=== PATIENT | male | born 2000 | race African-American/Black ===

== ENCOUNTER 2023-07-10 19:39 | Emergency (ER) | payer MEDICAID, SELFPAY ==
[2023-07-10 19:57] VITALS: BP 124/86; PULSE 64; RESP 16; TEMP 37.1; O2SAT 97; BMI 16.7
--- NOTE | 2023-07-10 19:58 | ED_ITS ---
HPI - General Adult General Chief complaint: Skin/Abscess/Foreign Body Stated complaint: Spider bite left side denominational Related Data Allergies Allergy/AdvReac Type Severity Reaction Status Date / Time No Known Allergies Allergy Unverified 08/09/20 16:41 [No Known Allergies*] Seasonale Allergy Unknown Uncoded 04/30/20 00:00 [facility] Social History Social History Advance Directives: No Advance Directives Information Provided: No Physical Exam ED Vital Signs: BMI result Body Mass Index 16.7 Course Course Course Narrative: RME performed by Annika Ahumada PA-C. Patient is a 23 year old assigned male at presenting to the emergency department with an abscess on his left denominational. Patient placed back in the waiting room pending room availability. Patient eloped from the department before being seen by a primary provider. Discharge Plan Discharge Clinical Impression: Abscess of skin or subcutaneous tissue Patient Disposition: Elopement Interventions: ED Discharge Assessment Last Done: 07/11/23 01:57 Discharge Date/Time: 07/11/23 01:57
[2023-07-10 23:31] VITALS: BP 121/75; PULSE 52; TEMP 37.2; O2SAT 99
--- OUTSIDE RECORDS SUMMARY | 2023-07-11 01:56 | XMS_ITS | Continuity of Care Document ---
Author Name Unknown Organization [facility] Address [address] [place] [address]- Care Team Providers Care Ladle Puller Name Role Phone Not on Staff, PCP Primary Care Physician Unavail able Encounter [facility] Date(s): 02/09/20 - 02/09/[address] [id number]- [facility] Discharge Disposition: A-D/C Home Attending Physician: Rafa Hager MD Admitting Physician: Rafa Hager MD Referring Physician: Not on Staff, Referring MD Allergies, Adverse Reactions, Alerts Substance Reaction Severity Status NKA Active Medications No Known Medications Vital Signs Most recent to oldest [Reference Range]: 1 Height 186 cm (02/09/20 5:37 PM) Weight 61.3 kg (02/09/20 5:37 PM) Oxygen Saturation [94-100 %] 100 % (02/09/20 5:37 PM) Pulse Rate [55-90 bpm] 61 bpm (02/09/20 5:37 PM) Blood Pressure [90-138/55-84 mm Hg] 124/ 53mm Hg (02/09/20 5:37 PM) Respiratory Rate [16-30 br/min] 16 br/mi n (02/09/20 5:37 PM) Temperature [96.8-100.4 DegF] 97.7 DegF (02/09/20 5:37 PM) Mode of Delivery (Oxygen) Room air (02/09/20 5:37 PM) Blood pressure sites Arm, right (02/09/20 5:37 PM) Temperature Route Oral (02/09/20 5:37 PM) Dry Weight 61.3 kg (02/09/20 5:37 PM) Weight Obtained Via Standing scale (02/09/20 5:37 PM) Dry Weight Obtained Via Standing scale (02/09/20 5:37 PM) Social History Social History Type Response Smoking Status Never (less than 100 in lifetime) entered on: 02/09/20 Sex
== END 2023-07-11 01:57 | disposition left against medical advice (07) ==
PROVIDERS: Emergency Provider Emergency Medicine; PCP Pediatrics
DX: L02.01 Cutaneous abscess of face (principal)
CPT/HCPCS: 99282

== ENCOUNTER 2025-11-08 09:15 | Emergency (ER) | payer MEDICAID, SELFPAY ==
[2025-11-08 09:35] VITALS: BP 138/65; PULSE 69; RESP 18; TEMP 36.6; O2SAT 99; BMI 20.3
--- NOTE | 2025-11-08 10:46 | ED_ITS ---
HPI - Skin/Abscess/Foreign Bdy General Chief complaint: Skin/Abscess/Foreign Body Stated complaint: cyst Time Seen by Provider: 11/08/25 10:41 Source: patient Mode of arrival: ambulatory Limitations: no limitations History of Present Illness ED Provider: Chip Calloway PA-C HPI narrative: 25 yo male presents to the ER for evaluation of a painful large cyst on the left side of his face that has been present for the last several days. He reports the same thing happened 2 years ago and he had to get it drained. He reports he was seen at an urgent care couple of days ago, they prescribed him an antibiotic and he has had no improvement. He reports the swelling is starting to go near his left eye. He denies any pain with extraocular movements. No fever or chills. No drainage from the cyst. No other cysts on his body. Denies history of cystic acne complaint: abscess/boil Onset (ago): day(s) Tetanus up to date: yes Location: face Severity: moderate Severity scale (1-10): 5 Quality: aching Pain Consistency: constant Relieving factors: none Exacerbating factors: palpation Context: none Associated symptoms: denies other symptoms Treatments prior to arrival: none Related Data Previous Rx's ?Medication ?Instructions ?Recorded doxycycline hyclate 100 mg tablet 100 mg PO BID #14 ta bs 11/08/25 Allergies Allergy/AdvReac Type Severity Reaction Status Date / Time No Known Allergies (No Known Allergy Unverified 11/08/25 09:37 Allergies*) Seasonale Allergy Unknown Unknown Uncoded 11/08/25 09:37 Review of Systems Review of Systems: Yes all other systems are reviewed and are negative [facility] Social History Social History Advance Directives: No Advance Directives Information Provided: Yes Physical Exam Exam: Exam: Appearance: Alert. Oriented X3. No acute distress. HEENT: atraumatic, normocephalic, on the left side of the face in the temporal area there is a large, approximately 1.5 cm cyst with central fluctuance, tenderness, multiple white pustules on the surface. There is mild erythema and swelling below the cyst, extending into the area below the left eye. Extraocular movements are intact. Pupil reactions are normal. CVS: Normal heart rate and rhythm. Pulses normal. Respiratory: No respiratory distress. Skin: Skin warm and dry. Normal skin color. Normal skin turgor. No rashes. Extremities: normal inspection Neuro: Oriented X 3. grossly normal, nonfocal Vital Signs: Vital Signs: Last Vital Signs Temp 98 F 11/08/25 11:22 Pulse 69 11/08/25 11:22 Resp 18 11/08/25 11:22 BP 138/65 11/08/25 11:22 Pulse Ox 99 11/08/25 11:22 O2 Del Method Room Air 11/08/25 11:22 BMI result Body Mass Index 20.3 Medical Decision Making Medical Decision Making MDM Narrative: 25-year-old male presents to the ER for evaluation of an infected cyst on the left side of his face. Similar presentation 2 years ago but nothing since then. The area is inflamed, infected with some mild cellulitis. No evidence of periorbital cellulitis. He is in agreement to get the lesion drained today. Large amount of purulent drainage was expressed during I and D. Small amount of packing was placed. Wound care discussed with the patient. Will prescribe doxycycline and have him follow up with Dermatology, he will likely need a cyst removed oral will continue to get reinflated and infected from time to time. He agrees to follow-up with dermatology. Return precautions were discussed. Stable for discharge home Differential Diagnosis Differential Diagnoses: The differential diagnosis associated with the presentation includes Abscess, infected epidermoid cyst, preseptal cellulitis, low suspicion for orbital cellulitis Prescription Management I considered prescription management with: Pain Medication and Antibiotic Procedures Abscess I/D Site: face Local Anesthetic: lidocaine 1% Amount of anesthesia used (mL): 0.5 Technique: incised with blade Sent for culture/gram staining?: No Irrigation: Yes Packing used?: iodoform Discharge Plan Discharge Clinical Impression: Abscess Patient Disposition: Home, Self-Care Instructions: Abscess Incision and Drainage (DC) Additional Instructions: remove the packing in 2 days keep clean and covered STOP taking the previously prescribed antibiotic START taking the new antibiotic prescribed today (sent to [facility]) use warm compresses several times per day recommend following up with [facility] in [place] for cyst sack removal - If you develop new or worsening symptoms call 911 or come back to the ER for further evaluation. Prescriptions: New doxycycline hyclate 100 mg tablet 100 mg PO BID Qty: 14 0RF Interventions: ED Discharge Assessment Last Done: 11/08/25 11:22 Discharge Date/Time: 12/17/25 11:22 Print Language: Romanian
--- NOTE | 2025-11-08 10:57 | PC.NURSE ---
CYNDI Gramajo at bedside draining abcess, patient tolerating well
[2025-11-08 11:22] VITALS: BP 138/65; PULSE 69; RESP 18; TEMP 36.6; O2SAT 99
--- OUTSIDE RECORDS SUMMARY | 2025-11-08 13:14 | XMS_ITS | Clinical Summary ---
Author Organization [facility] Address [address] [place] [address] Phone Care Team Providers Care Van Loader Name Role Phone Unavailable Primary Care Provider Unavailabl e Immunizations Immunization Administration Dates Next Due DTaP 5 08/29/2003, 0,1999,07/09,1999 H1N1 04/16/2010,12/03/2009 HPV, Quadrivalent 03/20/2015,12/20/2014,02/07/20 14 Hep A, ped/adol 12/20/2014,02/06/2014 Hep B, ped/adol 1999,1999,1999 Hib (PRP-T) 08/20/2000, 9,1999,03/13 IPV 08/29/2003, 0,1999,03/13 Influenza, injectable, quadrivalent 02/21/2016,0 12/20/2014 Influenza, injectable, quadr ivalent, preservative free 02/06/2014 Influenza, injectable, trivalent 12/03/2009,11/23 Influenza, intranasal, trivalent 09/04/2011 MMR 08/29/2003,01/21/2000 Meningococcal Conj (Menactra) MCV4P 02/21/2016,1 Pneumococcal Conjugate 10/19/2000,08/20/2000 Td (adult) (Tenivac), 5 Lf t etanus toxoid, PF, adsorbed 04/24/2016 Tdap 04/16/2010 Family History Relation Name Status Comments Brother 1 Alive Brother: Alive and well, Tic Disorder, Alive and well Brother 2 Alive Brother: Alive and well, Tic Disorder, Alive and well Father Alive Father: Graves Disease, tic disorder Mother Alive Mother: Asthma, hypertension Other No family histo ry of Developmental dislocation of hip, Family history of Diabetes mellitus, Family history of Cancer, bone, No family history of *Heart Disease, Family history of *CVA/Stroke, Family history of Migraines, No family history of *Thrombophilia, No family history of Obesity, No family history of Hyperlipidemia, No family history of Seizure disorder, Family history of Deafness, Family history of *Dental caries, Family history of *Sudden /[place] under 55 Sister 1 Alive Sister: ADD/ADH D, Alive and well, Alive and well Sister 2 Alive Sister: ADD/ADH D, Alive and well, Alive and well Social History Tobacco Use Types Packs/Day Years Used Date Smoking Tobacco: Unknown Comments:Unknown if ever smo ked Sex and Gender Information Value Date Recorded Sex Assigned at Not on file Legal Sex Male 4:52 PM EDT Gender Identity Not on file Sexual Orientation Not on file Last Filed Vital Signs Vital Sign Reading Time Taken Comments Blood Pressure 134/80 05/01/2016 12:00 AM EDT Pulse 54 05/01/2016 12:00 AM EDT Temperature 36.5 C (97.7 F) 05/29/2010 12:00 AM EDT Respiratory Rate - - Oxygen Saturation - - Inhaled Oxygen Concentration - - Weight 59.1 kg (130 lb 6.4 oz) 05/01/2016 12:00 AM EDT Height 177.2 cm (5' 9.75 ) 05/01/2016 12:00 AM E DT Body Mass Index 18.85 05/01/2016 12:00 AM EDT Plan of Treatment Health Maintenance Due Date Last Done Comments Varicella Vaccines (1 of 2 - 13+ 2-dose series) 2012 Influenza Vaccines (#1) 2025 02/21/20 16, 12/20/2014, 02/06/2014, Additional history exists COVID-19 Vaccine ( - 2024- season) 2025 DTaP,Tdap,and Td Vaccines (8 - Td or Tdap) 04/24/2026 04/24/2016, 04/16/2010, 08/29/2003, Additional history exists Hepatitis B Vaccines Completed 1999, 1999, 1999 HIB Vaccines Completed 08/20/2000, 08/24, 1999, Additional history exists Pneumococcal Vaccine Completed 10/19/2000, 08/20/20 00 IPV Vaccines Completed 08/29/2003, 12/25, 1999, Additional history exists MMR Vaccines Completed 08/29/2003, 01/21/2000 Hepatitis A Vaccines Completed 12/20/2014, 02/07/20 14 HPV Vaccines Completed 03/20/2015, 11/24, 02/06/2014 Meningococcal Vaccine Completed 02/21/2016, 011 Men B Vaccine Aged Out No longer elig ible based on patient's age to complete this topic Insurance [facility] NON PCC [facility] PPO
--- OUTSIDE RECORDS SUMMARY | 2025-11-08 13:14 | XMS_ITS | Encounter Summary ---
Author Organization [facility] Address [address] [place] [id number] Phone Care Team Providers Care Screwdown Operator Name Role Phone Mike Lange MD Primary Care Provider [phone] Encounter Details Date Type Department Care Team (Late st Contact Info) Description 07/09/2017 Conversion Encounter [facility] [place] [address] [place] [address] Social History Tobacco Use Types Packs/Day Years Used Date Smoking Tobacco: Unknown Comments:Unknown if ever smo ked Sex and Gender Information Value Date Recorded Sex Assigned at Not on file Legal Sex Male 4:52 PM EDT Gender Identity Not on file Sexual Orientation Not on file documented as of this encounter Plan of Treatment Not on file documented as of this encounter Visit Diagnoses Not on filedocumented in this encounter Care Teams Screwdown Operator Relationship Specialty Start Date End Date Mike Lange MD [address] [place] [address] PCP - General 07/03/17 03/01/23 documented as of this encounter
== END 2025-11-08 11:22 | disposition home or self-care (01) ==
PROVIDERS: Emergency Provider Emergency Medicine Emergency Medical Services
DX: L72.8 Other follicular cysts of the skin and subcutaneous tissue (principal); L02.01 Cutaneous abscess of face
CPT/HCPCS: 10060; 99283; 99284